=== PATIENT | male | born 1960 | race Caucasian/White ===

== ENCOUNTER 2022-08-10 08:00 | Outpatient (CLI) | payer OTHER ==
[2022-08-10 18:34] LABS: BASOPHILS # (AUTO) 0.1 10^3/uL (0.0-0.1); EOSINOPHILS # (AUTO) 0.2 10^3/uL (0.0-0.7); EOSINOPHILS % (AUTO) 2.1 %; HCT - HEMATOCRIT 48.3 % (42.0-52.0); HGB - HEMOGLOBIN 15.6 g/dL (14.0-18.0); LYMPHOCYTES # (AUTO) 1.4 10^3/uL (1.5-3.5); LYMPHOCYTES % (AUTO) 14.7 %; MEAN CORPUSCULAR HEMOGLOBIN 27.5 pg (27.0-31.0); MEAN CORPUSCULAR HGB CONC 32.3 g/dL (32.0-36.0); MEAN CORPUSCULAR VOLUME 85.2 fL (80.0-94.0); MEAN PLATELET VOLUME 11.4 fL (7.4-11.4); MONOCYTES # (AUTO) 0.7 10^3/uL (0.0-1.0); MONOCYTES % (AUTO) 7.1 %; NEUTROPHILS # (AUTO) 7.3 10^3/uL (1.5-6.6); NEUTROPHILS % (AUTO) 74.8 %; PLT - PLATELET COUNT 252 10^3/uL (130-450); RED BLOOD COUNT 5.67 10^6/uL (4.70-6.10); RED CELL DISTRIBUTION WIDTH 13.5 % (12.0-15.0); WHITE BLOOD COUNT 9.7 x10^3/uL (4.8-10.8)
[2022-08-10 18:55] LABS: ALBUMIN 4.5 g/dL (3.2-5.5); ALBUMIN/GLOBULIN RATIO 1.1 (1.0-2.2); BILIRUBIN,TOTAL 0.7 mg/dL (0.2-1.0); CALCIUM 9.9 mg/dL (8.5-10.3); CREATININE 0.9 mg/dL (0.6-1.2); POTASSIUM 3.9 mmol/L (3.5-5.0); TOTAL PROTEIN 8.6 g/dL (6.7-8.2)
[2022-08-10 20:08] LABS: ESTIMATED AVERAGE GLUCOSE 120 mg/dL (70-100); HEMOGLOBIN A1c% 5.8 % (4.27-6.07)
== END 2022-08-10 23:59 | disposition home or self-care (01) ==
LOC: LAB.N 08:00
PROVIDERS: ATTEND Physician Assistant
DX: I10 Essential (primary) hypertension (principal)
CPT/HCPCS: 36415; 80053; 82553; 83036; 83880; 85025

== ENCOUNTER 2022-08-28 14:38 | Outpatient (CLI) | payer OTHER ==
[2022-08-28] MEDS ORDERED: iohexoL-300 100 ML VIAL ONE (14:47)
[2022-08-28] MEDS ORDERED: iohexoL-300 100 ML VIAL IVP ONE (16:37)
--- NOTE | 2022-08-28 18:39 | CT Report ---
PROCEDURE: CT angiogram head with contrast, CT brain without contrast INDICATIONS: TACHYCARDIA, HYPERTENSION, LEFT HEMIPARESIS CONTRAST: 80ml Omnipaque 300 TECHNIQUE: Precontrast 4.5 mm thick angled axial sections acquired from the foramen magnum to the vertex. Afte r the administration of intravenous contrast, 1 mm thick sections acquired through the [place] of [place] is. Postcontrast 4.5 mm thick sections then re-acquired from the foramen magnum to the vertex. 3-di mensional ilngyzm-boliknrra-klzxxotnep (MIP) and/or volume rendering reformats were acquired of the c entral intracranial vasculature. For radiation dose reduction, the following was used: automated ex posure control, adjustment of mA and/or kV according to patient size. COMPARISON: FINDINGS: Image quality: Excellent. Anterior circulation: Intracranial internal carotid arteries are normal in size and flow. The flow within the paired anterior cerebral arteries is normal and symmetric. The flow within the middle cer ebral arteries is normal and symmetric. The anterior communicating artery is seen. No aneurysms are seen. Posterior circulation: Left vertebral artery dominance. Diminutive right vertebral artery terminates in the posterior inferior cerebellar artery. 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 The P2 se gment is supplied by a widely patent posterior communicating artery. Remainder of the distal vasculat ure unremarkable. . No aneurysms are seen. CSF spaces: Ventricles are normal in size and shape. Basal cisterns are patent. No extra-axial flu id collections. Brain: No midline shift. No intracranial bleeds or masses. Lopez-white matter interface appears int act. Skull and face: Calvarium and facial bones appear intact, without suspicious lesions. Sinuses: Visualized sinuses and mastoids are clear. IMPRESSION: Unremarkable CT of the brain. Unremarkable CT angiogram of the brain. No large vessel occlusion, aneurysm or vascular malformation Reviewed by: Meir Alarcon MD on 08/28/2022 5:38 PM [place] Approved by: Meir Alarcon MD on 08/28/2022 5:38 PM [facility] Station ID: [id number]
--- NOTE | 2022-08-28 18:59 | CT Report ---
PROCEDURE: CT angiogram neck with contrast INDICATIONS: TACHYCARDIA, HYPERTENSION, LEFT HEMIPARESIS CONTRAST: 80ml Omnipaque 300 TECHNIQUE: After the administration of intravenous contrast, 1.5 mm axial sections acquired from the aortic arch to the [place] of [place]. maximum intensity projection (MIP) and/or volume rendering reformats were then performed. For radiation dose reduction, the following was used: automated exposure control, a djustment of mA and/or kV according to patient size. COMPARISON: None. FINDINGS: Image quality: Excellent. Carotid system: The left common carotid and right hepatic artery arises from a common trunk from the aortic arch.. The origins of the common carotid arteries appear patent. The common carotid arteries demonstrate normal calibers and courses. The bifurcation regions appear normal bilaterally. The in ternal carotid arteries demonstrate normal caliber and course. Posterior circulation: The origins of the vertebral arteries appear patent. The more superior porti ons of the vertebral arteries demonstrate normal course and caliber. They join to form a normal appe aring basilar artery. Soft tissues: Visualized neck soft tissues demonstrate no suspicious abnormalities. The thyroid is normal in size and there are no incidental findings. Bones: No suspicious bony lesions. Visualized cervical spine appears normally aligned. Mild degen erative changes noted in the cervical spine IMPRESSION: 1. Normal CT angiogram the neck. 2. Incidental mild degenerative changes in the cervical spine The estimate of stenosis included in the report of the imaging study was calculated using the NASCET method Reviewed by: Meir Alarcon MD on 08/28/2022 5:57 PM [facility] Approved by: Meir Alarcon MD on 08/28/2022 5:57 PM [place] Station ID: [id number]
== END 2022-08-28 14:39 | disposition home or self-care (01) ==
LOC: DI 14:38
PROVIDERS: ATTEND Internal Medicine
DX: G81.90 Hemiplegia, unspecified affecting unspecified side (principal); I10 Essential (primary) hypertension
CPT/HCPCS: 70496; 70498; Q9967

== ENCOUNTER 2022-09-26 08:59 | Outpatient (CLI) | payer OTHER ==
[2022-09-26 12:39] LABS: BUN - BLOOD UREA NITROGEN 19 mg/dL (6-20); CALCIUM 9.4 mg/dL (8.5-10.3); CARBON DIOXIDE - CO2 29 mmol/L (21-32); CHLORIDE 107 mmol/L (101-111); CHOL/HDL RATIO 4.7 (<5.0); CHOLESTEROL 173 mg/dL; GFR - MDRD 76 (>89); GLUCOSE 130 mg/dL (70-100); HDL CHOLESTEROL 37 mg/dL; LDL CHOLESTEROL,CALCULATED 114 mg/dL; LDL/HDL RATIO 3.1 (<3.6); POTASSIUM 3.9 mmol/L (3.5-5.0); SODIUM 142 mmol/L (135-145); TRIGLYCERIDES 108 mg/dL; VLDL CHOLESTEROL 22 mg/dL
[2022-09-26 12:44] LABS: THYROID STIMULATING HORMONE 1.88 uIU/mL (0.34-5.60)
[2022-09-26 12:46] LABS: FREE T4 (FREE THYROXINE) 1.03 ng/dL (0.58-1.64)
== END 2022-09-26 09:00 | disposition home or self-care (01) ==
LOC: LAB.N 08:59
PROVIDERS: ATTEND Internal Medicine Cardiovascular Disease
DX: I10 Essential (primary) hypertension (principal); Z13.220 Encounter for screening for lipoid disorders; Z13.29 Encounter for screening for other suspected endocrine disorder
CPT/HCPCS: 36415; 80048; 80061; 83721; 84439; 84443

== ENCOUNTER 2022-10-10 12:32 | Outpatient (CLI) | payer OTHER | END 2022-10-10 12:33 | disposition home or self-care (01) | LOC: DI 12:32 | PROVIDERS: ATTEND Internal Medicine | DX: R00.0 Tachycardia, unspecified (principal); R07.89 Other chest pain; I11.9 Hypertensive heart disease without heart failure | CPT/HCPCS: 93306 ==

== ENCOUNTER 2023-10-18 09:50 | Outpatient (CLI) | payer OTHER ==
[2023-10-18 11:55] LABS: BASOPHILS # (AUTO) 0.1 10^3/uL (0.0-0.1); EOSINOPHILS # (AUTO) 0.3 10^3/uL (0.0-0.7); EOSINOPHILS % (AUTO) 2.5 %; HCT - HEMATOCRIT 42.3 % (42.0-52.0); HGB - HEMOGLOBIN 13.6 g/dL (14.0-18.0); LYMPHOCYTES # (AUTO) 1.6 10^3/uL (1.5-3.5); LYMPHOCYTES % (AUTO) 15.4 %; MEAN CORPUSCULAR HEMOGLOBIN 27.9 pg (27.0-31.0); MEAN CORPUSCULAR HGB CONC 32.2 g/dL (32.0-36.0); MEAN CORPUSCULAR VOLUME 86.9 fL (80.0-94.0); MEAN PLATELET VOLUME 10.8 fL (7.4-11.4); MONOCYTES # (AUTO) 0.7 10^3/uL (0.0-1.0); MONOCYTES % (AUTO) 6.5 %; NEUTROPHILS # (AUTO) 7.8 10^3/uL (1.5-6.6); NEUTROPHILS % (AUTO) 74.2 %; PLT - PLATELET COUNT 303 10^3/uL (130-450); RED BLOOD COUNT 4.87 10^6/uL (4.70-6.10); RED CELL DISTRIBUTION WIDTH 13.2 % (12.0-15.0); WHITE BLOOD COUNT 10.5 x10^3/uL (4.8-10.8)
[2023-10-18 12:27] LABS: % IRON SATURATION 17 % (20-50); ALBUMIN 4.7 g/dL (3.2-5.5); ALBUMIN/GLOBULIN RATIO 1.3 (1.0-2.2); ALKALINE PHOSPHATASE 61 IU/L (42-121); ALT ALANINE AMINOTRANSFERASE 11 IU/L (10-60); AST ASPARTATE AMINOTRANSFERASE 20 IU/L (10-42); BILIRUBIN,TOTAL 0.5 mg/dL (0.2-1.0); BUN - BLOOD UREA NITROGEN 36 mg/dL (6-20); CALCIUM 10.3 mg/dL (8.5-10.3); CARBON DIOXIDE - CO2 27 mmol/L (21-32); CHLORIDE 102 mmol/L (101-111); CREATININE 1.7 mg/dL (0.6-1.3); CRP - C-REACTIVE PROTEIN < 0.5 mg/dL (<0.5); GFR - MDRD 41 (>89); GLUCOSE 158 mg/dL (74-104); IRON 61 ug/dL (50-212); POTASSIUM 3.8 mmol/L (3.5-4.5); SODIUM 138 mmol/L (135-145); TOTAL IRON BINDING CAPACITY 351 ug/dL (250-450); TOTAL PROTEIN 8.3 g/dL (6.4-8.9); TRANSFERRIN 251 mg/dL (203-362)
[2023-10-18 12:40] LABS: FERRITIN 179.1 ng/mL (23.9-336.2)
[2023-10-19 07:09] LABS: VITAMIN D 25-HYDROXY 43.7 ng/mL (30.0-100.0)
[2023-10-19 10:09] LABS: CALCIUM IONIZED SERUM 4.9 mg/dL (4.5-5.6)
== END 2023-10-18 09:51 | disposition home or self-care (01) ==
LOC: LAB.N 09:50
PROVIDERS: ATTEND Internal Medicine
DX: I10 Essential (primary) hypertension (principal); E83.52 Hypercalcemia; R53.83 Other fatigue; M10.9 Gout, unspecified
CPT/HCPCS: 36415; 80053; 82306; 82330; 82728; 83540; 83970; 84466; 85025; 86140

== ENCOUNTER 2023-11-08 09:44 | Outpatient (CLI) | payer OTHER ==
[2023-11-08 12:49] LABS: % IRON SATURATION 21 % (20-50); CRP - C-REACTIVE PROTEIN < 0.5 mg/dL (<0.5); IRON 75 ug/dL (50-212); TOTAL IRON BINDING CAPACITY 351 ug/dL (250-450); TRANSFERRIN 251 mg/dL (203-362); URIC ACID 7.4 mg/dL (4.4-7.6)
[2023-11-08 12:50] LABS: CREATININE,URINE 213.1 mg/dL; MICROALBUM/CREATININE RATIO,UR 25.8 ug/mg (<30.0); MICROALBUMIN,URINE 5.5 mg/dL
[2023-11-08 13:02] LABS: FERRITIN 149.8 ng/mL (23.9-336.2)
[2023-11-08 13:25] LABS: ESTIMATED AVERAGE GLUCOSE 128 mg/dL (70-100); HEMOGLOBIN A1c% 6.1 % (4.27-6.07)
== END 2023-11-08 09:45 | disposition home or self-care (01) ==
LOC: LAB.N 09:44
PROVIDERS: ATTEND Internal Medicine
DX: N18.30 Chronic kidney disease, stage 3 unspecified (principal); R53.83 Other fatigue; R73.9 Hyperglycemia, unspecified; M10.9 Gout, unspecified
CPT/HCPCS: 36415; 81599; 82043; 82570; 82728; 83036; 83540; 84466; 84550; 86140

== ENCOUNTER 2023-11-25 14:39 | Outpatient (CLI) | payer OTHER ==
[~2023-11-25 14:39] MED LIST: GADOTERATE MEGLUMINE 10 MMOL/20 ML VIAL ONE
[2023-11-25 15:17] LABS: CREATININE 1.8 mg/dL (0.6-1.3)
[2023-11-25] MEDS ORDERED: GADOTERATE MEGLUMINE 10 MMOL/20 ML VIAL IVP ONE (15:38)
--- NOTE | 2023-11-26 10:27 | MRI Report ---
PROCEDURE: Pelvis W/WO INDICATIONS: HEMATOSPERMIA CONTRAST: 17.2ml Clariscan TECHNIQUE: Coronal ultra fast SE, axial T1 FSE with fat saturation, 3-plane nonbreath-hold T2 FSE. After the ad ministration of contrast, dynamic axial, delayed axial and coronal ultra fast GE or 2-D spoiled GE wi th fat saturation through the pelvis. Optional diffusion weighted imaging and ADC may be performed. COMPARISON: Ultrasound 10/10/2022 FINDINGS: Image quality: Diffusion weighted and dynamic contrast enhanced images are diagnostic. Prostate: Gland size is 4.0 x 3.2 x 3.9 cm; ellipsoid gland volume is 26 mL. PSA Density: PSA not pr ovided for calculation. Mild hypertrophy of the transition zone. T1 hyperintense products within the seminal vesicles. No PI-RADS 3-5 lesions. Genitourinary system: Bladder wall thickness is normal. Distal ureters are non distended. Bowel and peritoneum: Trace free fluid in the pelvis. Inferior colon and small bowel loops are norm al in caliber. Colonic diverticulosis without evidence of diverticulitis. Nodes and vessels: No pelvic or inguinal adenopathy by size criteria. Iliac vessels are normal in c aliber. Soft tissues: No inguinal hernias. Bones: Bone marrow demonstrates normal overall signal. No suspicious bony lesions. IMPRESSION: No PI-RADS 3-5 lesions. No aggressive osseous abnormality. No pelvic adenopathy by size criteria. Hemorrhagic products within the seminal vesicles. Trace free fluid in pelvis, atypical in a male, and usually indicating a recent infectious or inflamm atory process within the abdomen. Reviewed by: Lucio Jones MD on 11/26/2023 10:26 AM PDT Approved by: Lucio Jones MD on 11/26/2023 10:26 AM PDT Station ID: [id number]
== END 2023-11-25 14:40 | disposition home or self-care (01) ==
LOC: DI 14:39
PROVIDERS: ATTEND Urology
DX: R36.1 Hematospermia (principal)
CPT/HCPCS: 36415; 82565

== ENCOUNTER 2023-12-09 07:49 | Outpatient (CLI) | payer OTHER ==
[2023-12-09 12:07] LABS: RHEUMATOID FACTOR NEGATIVE (Negative)
== END 2023-12-09 07:50 | disposition home or self-care (01) ==
LOC: LAB.N 07:49
PROVIDERS: ATTEND Urology
DX: N18.30 Chronic kidney disease, stage 3 unspecified (principal); R53.83 Other fatigue; N52.9 Male erectile dysfunction, unspecified
CPT/HCPCS: 36415; 84403; 85651; 86038; 86140; 86225; 86430

== ENCOUNTER 2023-12-12 07:40 | Outpatient (CLI) | payer OTHER ==
[2023-12-12 12:32] LABS: PROLACTIN 7.15 ng/mL
== END 2023-12-12 07:41 | disposition home or self-care (01) ==
LOC: LAB.N 07:40
PROVIDERS: ATTEND Urology
DX: N52.9 Male erectile dysfunction, unspecified (principal)
CPT/HCPCS: 36415; 82670; 83002; 84146; 84403